=== PATIENT | male | born 1960 | race Caucasian/White ===

== ENCOUNTER → 2017-05-31 | Outpatient (CLI) | payer MEDICARE, OTHER ==
--- NOTE | 2017-05-31 12:15 | RAD ---
Indication: Left knee pain Technique: 3 views of the left knee Comparison: Plain films of the tibia and fibula from 08/11/2011 Findings: No acute fracture or dislocation. Healed fracture of the medial aspect of the proximal tibia noted. Interval removal of internal fixation hardware when compared to previous study. Single broken screw is seen in the proximal tibia. Mild tricompartmental joint space narrowing, more so in the medial compartment with productive changes. Suggestion of small suprapatellar effusion. Impression: 1. Mild to moderate tricompartmental osteoarthritis of the knee joint. 2. Changes from healed fracture of the medial proximal tibia.
== END | disposition home or self-care (01) ==
LOC: DXRAD 11:56
PROVIDERS: ATTEND Orthopaedic Surgery Sports Medicine
DX: M17.12 Unilateral primary osteoarthritis, left knee (principal); S82.102D Unspecified fracture of upper end of left tibia, subsequent encounter for closed fracture with routine healing; X58.XXXD Exposure to other specified factors, subsequent encounter
CPT/HCPCS: 73560

== ENCOUNTER → 2017-07-20 | Outpatient (CLI) | payer MEDICARE, OTHER ==
--- NOTE | 2017-07-20 14:34 | RAD ---
Thoracic spine, 3 views, 07/20/2017: History: Chronic pain The thoracic vertebral heights are well-maintained. There are moderate scattered marginal spurs with bony bridging at several levels. No fracture or dislocation is identified. There are surgical plates and screws in the lower cervical spine. IMPRESSION: 1. Moderate multilevel hypertrophic degenerative change. 2. No acute bony abnormality is detected.
--- NOTE | 2017-07-20 14:38 | RAD ---
Cervical spine, 3 views, 07/20/2017: History: Chronic pain There has been previous anterior spinal fusions at the C4-5 and C5-6 levels. There are overlapping anterior fixation plates at these 2 levels attached to the C4, C5 and C6 vertebral bodies via multiple screws. Partially radiopaque disc spacers are present at C4-5 and C5-6. There are moderate anterior spurs at the other disc levels. There are mild scattered posterior spurs. C7 was not well visualized in the lateral projection due to the high position of the patient's shoulders. There are mild degenerative changes involving multiple facet joints bilaterally. There is straightening of the normal cervical lordosis. No fracture or dislocation is evident. No prevertebral soft tissue swelling is seen. IMPRESSION: 1. Previous anterior spinal fusion and instrumentation from C4 through C6. 2. Moderate multilevel degenerative change.
== END | disposition home or self-care (01) ==
LOC: PMG 13:16
PROVIDERS: ATTEND Physician Assistant Medical
DX: M47.893 Other spondylosis, cervicothoracic region (principal); M53.82 Other specified dorsopathies, cervical region; G89.29 Other chronic pain; Z98.1 Arthrodesis status
CPT/HCPCS: 72040; 72072

== ENCOUNTER → 2018-02-22 | Outpatient (CLI) | payer MEDICARE, OTHER ==
--- NOTE | 2018-02-22 12:27 | RAD ---
EXAM: Chest, 2 views. HISTORY: Shortness of air. COMPARISON: None. FINDINGS: Frontal and lateral views of the chest are obtained. There is no infiltrate, pleural effusion or pneumothorax. The heart is normal in size. There is cervical spinal fusion instrumentation. There is a hypoplastic right first rib. IMPRESSION: No acute pulmonary finding. Electronically signed by: Kristyn Iqbal MD (02/22/2018 12:24 PM) [place] [id number]
== END | disposition home or self-care (01) ==
LOC: PMG 11:39
PROVIDERS: ATTEND Family Medicine
DX: Z01.818 Encounter for other preprocedural examination (principal); R06.02 Shortness of breath
CPT/HCPCS: 71046

== ENCOUNTER → 2019-03-26 | Outpatient (CLI) | payer MEDICARE ==
--- NOTE | 2019-03-26 15:23 | RAD ---
EXAM: Chest, 2 views. HISTORY: Shortness of breath. COMPARISON: 02/22/2018 FINDINGS: 2 views of the chest are obtained. There is no infiltrate, pleural effusion or pneumothorax. There is a stable prominent cardiac silhouette. There is cervical spinal fusion instrumentation. IMPRESSION: No acute pulmonary finding. Electronically signed by: Kristyn Iqbal MD (03/26/2019 3:20 PM) [place] [id number]
== END | disposition home or self-care (01) ==
LOC: DXRAD 12:52
PROVIDERS: ATTEND Physician Assistant Medical
DX: Z01.818 Encounter for other preprocedural examination (principal); Z98.1 Arthrodesis status
CPT/HCPCS: 71046

== ENCOUNTER → 2019-06-27 | Outpatient (CLI) | payer MEDICARE ==
--- NOTE | 2019-06-27 09:08 | RAD ---
EXAM: Left wrist, 4 views. HISTORY: Nontraumatic pain. COMPARISON: None. FINDINGS: 4 views of the left wrist are obtained. There is no fracture, dislocation or subluxation. The alignment and joint spaces are unremarkable. IMPRESSION: No acute osseous finding. Electronically signed by: Kristyn Iqbal MD (06/27/2019 9:06 AM) [facility]
== END | disposition home or self-care (01) ==
LOC: PMG 08:41
PROVIDERS: ATTEND Physician Assistant Medical
DX: M77.8 Other enthesopathies, not elsewhere classified (principal)
CPT/HCPCS: 73110

== ENCOUNTER 2021-02-12 19:24 | Emergency (ER) | payer MEDICARE ==
[~2021-02-12] VITALS: Ht 195.6 cm; Wt 172.4 kg
[2021-02-12 19:42] VITALS: BP 123/63
[2021-02-12] MEDS ORDERED: KETOROLAC 60 MG/2 ML VIAL. IM ONE (20:15)
--- NOTE | 2021-02-12 20:39 | RAD ---
Exam: Left foot 3 views INDICATION: Pain with ambulation TECHNIQUE: Frontal, lateral oblique views of the left foot Comparisons: None FINDINGS: Bone mineralization is normal. No acute or healed fractures. Soft tissues are unremarkable. Joint spa kay are well-maintained. IMPRESSION: No acute osseous abnormality. Electronically signed by: Az Khan MD (02/12/2021 8:36 PM) [place]
--- NOTE | 2021-02-12 20:57 | PHYS DOC ---
Past History Past Surgical History: Other (SUZANNE ONEIL) General Adult EDM: Chief Complaint: FOOT INJURY PAIN HPI: HPI: Patient is a 61 year old male who presents with lateral left foot pain for the past week. Patient states he typically wears orthotic inserts in his shoes per recommendation of a security attendant over 2 decades ago. Patient states that he got a new pair of shoes and he wore them for 2 to 3 days without his orthotic inserts. When he started to have pain, he put the orthotic inserts into his new shoes, but his pain has still worsened since onset. He has no pain at rest however when he ambulates his pain is 8/10. Patient denies any trauma or injury to his foot. Patient has no other complaints at this time. (SUZANNE ONEIL) Review of Systems: Review of Systems: ROS negative except as mentioned in HPI. (SUZANNE ONEIL) Current Medications: Current Meds: Current Medications Medications (Trade) Dose Ordered Sig/Cristy Start Time Stop Time Status Last Admin Dose Admin Ketorolac Tromethamine (Toradol Im) 15 mg 1X ONCE 02/12/21 20:15 02/12/21 20:16 DC 02/12/21 20:39 15 MG (SUZANNE ONEIL) Allergies: Allergies: Allergies Coded Allergies Type Severity Reaction Last Updated Verified No Known Drug Allergies 02/12/21 No (SUZANNE ONEIL) Physical Exam: PE: Constitutional: Well developed, well nourished, no acute distress, non-toxic appearance. Cardiovascular: Heart rate regular rhythm, no murmur. Lungs & Thorax: Bilateral breath sounds clear to auscultation. Extremities: Left foot has lateral tenderness and some mild swelling. Diffuse healed scarring noted on bilateral extremities. Extremities otherwise no tenderness, no cyanosis, no clubbing, ROM intact, no edema. Neurologic: Alert and oriented X 3, normal motor function, normal sensory function, no focal deficits noted. (SUZANNE ONEIL) Current Patient Data: Vital Signs: Vital Signs Date Time Temp Pulse Resp B/P (MAP) Pulse Ox O2 Delivery O2 Flow Rate FiO2 02/12/21 19:42 97.9 75 18 123/63 (83) 97 Room Air (SUZANNE ONEIL) Radiology/Procedures: Radiology/Procedures: PROCEDURE: FOOT LEFT 3V Exam: Left foot 3 views INDICATION: Pain with ambulation TECHNIQUE: Frontal, lateral oblique views of the left foot Comparisons: None FINDINGS: Bone mineralization is normal. No acute or healed fractures. Soft tissues are unremarkable. Joint spaces are well-maintained. IMPRESSION: No acute osseous abnormality. Electronically signed by: Az Khan MD (02/12/2021 8:36 PM) [facility] (SUZANNE ONEIL) Heart Score: C/O Chest Pain: No (SUZANNE ONEIL) Course & Med Decision Making: Course & Med Decision Making Pertinent Labs and Imaging studies reviewed. (See chart for details) X-rays will be obtained to evaluate left foot for stress fracture or other acute bony abnormalities. No fractures are seen on x-ray images obtained today. Patient will be advised to follow-up his security attendant for further evaluation and management. Until then, patient will be placed in a boot with RICE instruction. Patient is agreeable to discharge plan. (SUZANNE ONEIL) Dragon Disclaimer: Dragon Disclaimer: This electronic medical record was generated, in whole or in part, using a voice recognition dictation system. (SUZANNE ONEIL) Departure Departure: Impression: Primary Impression: Left foot pain Disposition: HOME / SELF CARE / HOMELESS Condition: STABLE Referrals: KATE ARMAS (PCP) Patient Instructions: RICE - Routine Care for Injuries, [id number] Additional Instructions: Disc was provided to you with your x-ray images obtained today. Please take them with you when you follow-up with your security attendant. Return to emergency department if your pain becomes unmanageable at home. Attending Signature Attending Signature I have participated in the care of this patient and I have reviewed and agree with all pertinent clinical information above including history, exam, and jaycee mmendations. (LEODAN FATIMA MD) SUZANNE ONEIL Feb 12, 2021 20:57 LEODAN FATIMA MD Feb 16, 2021 00:23
== END 2021-02-12 21:15 | disposition home or self-care (01) ==
LOC: ER 19:24
DX: M79.672 Pain in left foot (principal); R22.42 Localized swelling, mass and lump, left lower limb
CPT/HCPCS: 73630; 96372; 99283; J1885

== ENCOUNTER 2021-09-19 18:42 | Emergency (ER) | payer MEDICARE ==
[~2021-09-19] VITALS: Ht 195.6 cm; Wt 172.4 kg
[2021-09-19] MEDS ORDERED: DIPHTH,PERTUSS(ACELL),TET TOX 0.5 ML DISP.SYRIN. VAX IM ONE (20:00)
--- NOTE | 2021-09-19 21:12 | PHYS DOC ---
Past History Past Surgical History: Other Additional Past Surgical Histo: KNEES, CERVICAL WITH HARWARE, LUMBAR, SHOULDER Alcohol Use: None Adult General Chief Complaint Chief Complaint: SKIN PROBLEM HPI HPI Patient is a 61-year-old male with [id number] diabetes who presents the emergency department after cutting his leg on the bleacher while watching a sports game 2 days ago. Denies any other injuries. States it did not really hurt that bad maybe 2 out of 10. Denies any drainage. Denies any fevers, rash, chest pain, shortness of breath, abdominal pain, nausea, vomiting. Not up-to-date on tetanus Review of Systems Review of Systems Review of systems otherwise unremarkable except noted in HPI Current Medications Current Medications Current Medications Medications (Trade) Dose Ordered Sig/Cristy Start Time Stop Time Status Last Admin Dose Admin Diphtheria/ Tetanus/Acell Pertussis (Boostrix) 0.5 ml ONCE ONCE 09/19/21 20:00 09/19/21 20:02 DC 09/19/21 20:50 0.5 ML Allergies Allergies Allergies Coded Allergies Type Severity Reaction Last Updated Verified No Known Drug Allergies 02/12/21 No Physical Exam Physical Exam Constitutional: Well developed, well nourished, no acute distress, non-toxic appearance. [] HENT: Normocephalic, atraumatic, bilateral external ears normal, oropharynx moist, no oral exudates, nose normal. [] Skin: Warm, dry, no erythema, no rash. [] Back: No tenderness, no CVA tenderness. [] Extremities: Neurovascular exam intact, 4 cm in circumference abrasion on right lower extremity, bleeding controlled, starting to scab Neurologic: Alert and oriented X 3, normal motor function, normal sensory function, able to sit, stand and walk without issue no focal deficits noted. [] Psychologic: Affect normal, judgement normal, mood normal. [] Current Patient Data Vital Signs Vital Signs Date Time Temp Pulse Resp B/P (MAP) Pulse Ox O2 Delivery O2 Flow Rate FiO2 09/19/21 19:17 98.3 77 18 152/72 (98) 95 Room Air EKG EKG [] Radiology/Procedures Radiology/Procedures [] Heart Score C/O Chest Pain: No Risk Factors: Risk Factors: DM, Current or recent (<one month) smoker, HTN, HLP, family his tory of CAD, obesity. Risk Scores: Risk Factors: DM, Current or recent (<one month) smoker, HTN, HLP, family history of CAD, obesity. Course & Med Decision Making Course & Med Decision Making Patient is a 61-year-old male who presents with an abrasion Vital signs notable for hypertension. Physical exam noted above. Updated tetanus. Given dose of antibiotics in the ED. Cleaned wound and bandaged. Given wound care material and education for home Advised to follow-up in the morning with primary care physician update on ED visit and set up a follow-up next week for reevaluation. Gave return precautions to the ED. Patient grateful, verbalized understanding and agreed with plan of discharge [] Dragon Disclaimer Dragon Disclaimer This electronic medical record was generated, in whole or in part, using a voice recognition dictation system. Departure Departure: Impression: Primary Impression: Wound healing well Disposition: 01 HOME / SELF CARE / HOMELESS Condition: STABLE Referrals: KATE ARMAS (PCP) Patient Instructions: Wound Care, [id number] Additional Instructions: Thank you for coming into the emergency department tonight and allowing us to take care of you. Please read the attached information carefully to go over things we discussed. Please keep your wound clean, dry and bandaged as demonstrated. Your tetanus was updated. You are given a dose of antibiotics in the emergency department. Please call your primary care physician in the morning to update on your ED visit and set up a follow-up next week for reevaluation of your wound. Please come back with new or concerning symptoms as discussed. JAYDA HERNANDEZ MD September 19, 2021 21:12
[2021-09-19] MEDS ORDERED: CEPHALEXIN 250 MG CAPSULE PO ONE (21:15)
[2021-09-19 21:40] VITALS: BP 120/58
== END 2021-09-19 21:45 | disposition home or self-care (01) ==
LOC: ER 18:45
DX: S80.811A Abrasion, right lower leg, initial encounter (principal); E11.9 Type 2 diabetes mellitus without complications; W22.8XXA Striking against or struck by other objects, initial encounter; Y93.89 Activity, other specified; Y92.89 Other specified places as the place of occurrence of the external cause; Y99.8 Other external cause status
CPT/HCPCS: 90471; 90715; 99283